=== PATIENT | male | born 1995 | race Caucasian/White ===

== ENCOUNTER → 2020-09-28 | Outpatient (CLI) | payer OTHER ==
[2020-09-28 18:13] LABS: HEMOGLOBIN 15.8 gm/dl (14.0-17.5); RED BLOOD COUNT 4.9 M/UL (4.20-5.50); WHITE BLOOD COUNT 3.4 K/UL (4.5-11.0)
[2020-09-28 18:43] LABS: BUN/CREATININE RATIO 10 (0-10)
[2020-09-30 07:11] LABS: COMPLEMENT C3, SERUM 90 mg/dL (82-167); COMPLEMENT C4, SERUM 9 mg/dL (12-38); HBSAG SCREEN Negative (Negative); HCV AB <0.1 (0.0-0.9); HEP B CORE AB, TOT Negative (Negative); RHEUMATOID ARTHRITIS FACTOR <10.0 IU/mL (0.0-13.9)
[2020-10-01 18:09] LABS: QUANTIFERON MITOGEN VALUE >10.00 IU/mL (.); QUANTIFERON NIL VALUE 0.01 IU/mL (.); QUANTIFERON TB1 AG VALUE 0.01 IU/mL (.); QUANTIFERON TB2 AG VALUE 0.02 IU/mL (.); QUANTIFERON-TB GOLD PLUS Negative (Negative)
== END ==
LOC: LAB 14:32
PROVIDERS: Nurse Practitioner Family
DX: D89.9 Disorder involving the immune mechanism, unspecified (principal); M25.50 Pain in unspecified joint; R76.8 Other specified abnormal immunological findings in serum; Z79.899 Other long term (current) drug therapy; M79.10 Myalgia, unspecified site; Z11.59 Encounter for screening for other viral diseases
CPT/HCPCS: 36415; 80053; 81001; 82550; 82570; 82728; 83520; 84156; 84439; 84443; 85025; 85652; 86140; 86160; 86162; 86200; 86431; 86704; 86803; 87340

== ENCOUNTER → 2020-11-16 | Outpatient (CLI) | payer OTHER ==
[~2020-11-16] VITALS: Ht 180.3 cm; Wt 88.0 kg
== END ==
LOC: OPSV 11-07 12:00
DX: L93.0 Discoid lupus erythematosus (principal)
CPT/HCPCS: 96365; 96375; J0490; J1720; J7030

== ENCOUNTER → 2020-11-30 | Outpatient (CLI) | payer OTHER | LOC: OPSV 08:29 | DX: L93.0 Discoid lupus erythematosus (principal) | CPT/HCPCS: 96365; 96375; J0490; J1720; J7030 ==

== ENCOUNTER → 2020-12-28 | Outpatient (CLI) | payer OTHER | LOC: OPSV 08:00 | DX: L93.0 Discoid lupus erythematosus (principal) | CPT/HCPCS: 96365; 96375; J0490; J1720; J7030 ==

== ENCOUNTER → 2021-01-25 | Outpatient (CLI) | payer OTHER | LOC: OPSV 08:48 | DX: L93.0 Discoid lupus erythematosus (principal) | CPT/HCPCS: 96365; 96375; J0490; J1720; J7030 ==